=== PATIENT | female | born 1965 | race Two or more races ===

== ENCOUNTER → 2016-06-30 07:26 | Day surgery (SDC) | payer BC ==
[~2016-06-30 07:26] MED LIST: Acetaminophen TAB* 325 MG PO PRN; Buffered Lidocaine 1% SYRIN* 3 ML/SYR SYRINGE INTRADERM ONE; Bupivacaine 0.5% SDV PF* 30 ML VIAL ONE; Dexamethasone IV* 4 MG/ML 1 ML (4 MG) ONE; DiMENhydriNATE IV* 50 MG/ML VIAL IV PUSH PRN; Famotidine IV* 10 MG/ML 2 ML (20 mg) ONE; HYDROcodone/ACETAMIN 5-325 MG* 1 TAB PO PRN; KETAMINE HCL* 50 MG/ML 10 ML VIAL ONE; Ketorolac INJ* 30 MG/ML 1 ML VIAL ONE; Lidocaine 1% INJ* 10 MG/ML 30 ML SDV ONE; Lidocaine 2% PF* 5 ML VIAL ONE; Midazolam* 1 MG/ML 2 ML VIAL (2 MG) ONE; Ondansetron INJ* 2 MG/ML VIAL IV PRN; Propofol* 10 MG/ML 20 ML BTL IV PUSH ONE; ceFAZolin 2 GM PREMIX(*) 2 GM/50 ML BAG IVPB ONE; fentaNYL* 50 MCG/ML 2 ML VIAL (100 MCG VIAL) IV PRN; fentaNYL* 50 MCG/ML 2 ML VIAL (100 MCG VIAL) ONE
[2016-06-30 11:52] VITALS: BP 129/72
--- NOTE | 2016-07-01 04:00 | OP ---
DATE OF OPERATION: 06/30/16 - [facility] DATE OF : 65 SURGEON: Mason Rivera DPM ENVIRONMENTAL ASSISTANT: None. ANESTHESIOLOGIST: Dr. Hines ANESTHESIA: MAC with local. PRE-OP DIAGNOSIS: Painful bunion with hallux limitus, right foot. POST-OP DIAGNOSIS: Painful bunion with hallux limitus, right foot. OPERATIVE PROCEDURE: Bunionectomy with closing base wedge osteotomy and angular phalangeal osteotomy of the right foot. PATHOLOGY: Degenerative bone. HEMOSTASIS: Pneumatic ankle tourniquet. ESTIMATED BLOOD LOSS: Less than 10 cc. MATERIALS: Two of the 3.0 mm cannulated Gilberto screws. INDICATIONS: The patient has chronic right forefoot pain and significant bunion deformity with hypertrophic bone medially. Decreased range of motion and pain about the right great toe joint, causing pain while wearing shoes and walking. The patient opts for surgery at this time to attempt to decrease the deformity and to decrease the pain and improve her function. DESCRIPTION OF PROCEDURE: The patient was brought to the operating room, placed on the operating table in the supine position. The anesthesia department administered IV sedation and a peripheral nerve block was performed about the right forefoot with a 1:1 mixture of 1% lidocaine plain with 0.5% Marcaine plain. The right foot was prepped and draped in the usual fashion. The right foot was exsanguinated with an Esmarch bandage. The pneumatic ankle tourniquet was then inflated to 250 mmHg above the well-padded right ankle. Attention was directed to the dorsomedial aspect of the right great toe joint where a curvilinear incision was made. The incision was deepened through the subcutaneous tissue with care being taken to retract neurovascular structures and cauterize superficial bleeders as needed. Next, an inverted L-capsular incision was made to allow for exposure of the joint. The periosteum was reflected approximately to allow for exposure of the proximal aspect of the metatarsal. A McGlamry elevator was used to free the plantar lateral adhesions of the sesamoid apparatus. Next, a traditional lateral release was performed, transecting the conjoint tendon of the adductor hallucis. A portion of lateral fibular sesamoid ligament, portion of lateral capsule and extensor hallucis brevis tendon was also identified and transected. This allowed for relaxation of lateral contractures. Next, a closing base wedge osteotomy was performed with apex proximal medially and the base more distal medially to offer adequate correction of the intermetatarsal angle. Temporary fixation was achieved with a bone clamp. The position was assessed with a C-arm and optimal screw placement was found to be one screw across the osteotomy site. The position was assessed with the intraoperative C-arm. The temporary fixation was removed and found to be solid with no detectable motion or gapping. Based on the bone surface in the area, it was determined that another screw was not feasible to place across the osteotomy without compromising the adjacent cortex. The medial hinge was maintained with the osteotomy. The medial hypertrophic bone was resected out of the first metatarsal head in a manner as to preserve the sagittal groove. The power elsa was used to smooth the rough edges. I determined that a phalangeal osteotomy was needed to further correct for the hallux interphalangeals. Dissection was carried distal medially reflecting the periosteum with care being taken to retract the neurovascular structures and angular phalangeal osteotomy was performed from distal medial to more proximal lateral maintaining the hinge and allowed reduction of the osteotomy and temporary fixation achieved with the wire from screw set and using standard technique, a 3-0 mm cannulated [place] screw was placed across the osteotomy site. Prior to fixation, the correction was assessed with the C-arm as well as final placement of fixation and correction. Temporary fixation was removed. The osteotomy was found to be solid with no detectable motion or gapping. Both screws were checked and found to be two fingers tight. The surgical site was flushed with copious amounts of normal sterile saline. Medial capsulorrhaphy was performed, done in the capsule. Next, holding the hallux in the rectus position, the periosteum and capsular tissues were reapproximated and then secured with 2-0 Polysorb. The subcutaneous tissues were reapproximated with 4-0 Polysorb and the skin was reapproximated with 5-0 nylon. A 12 mg total of dexamethasone phosphate was infiltrated about the surgical site. The surgical site then dressed with Xeroform gauze, Yobani and a light Coban wrap. The pneumatic ankle tourniquet was deflated about the right ankle and a prompt hyperemic response was noted about all 5 digits of the patient's right foot. Having appeared to have tolerated the procedure and anesthesia well, the patient was transported via cart from the operating room to Recovery in satisfactory condition with capillary refill less than 3 seconds to all digits of the right foot. [id number]/[facility] #: [id number] MTDReuben
--- NOTE | 2016-07-01 14:44 | RAD ---
CPT II Codes: 6045F INDICATION: Right foot surgery TECHNIQUE: Intraoperative fluoroscopy was provided during right foot surgery. FINDINGS: 3 spot films depict placement of 2 intra-medullary screws spanning the proximal right first metatarsal and right great toe proximal phalanx. Remaining visualized bones are intact and properly aligned.. Fluoroscopy time: 32 seconds IMPRESSION: As above.
== END | disposition home or self-care (01) ==
LOC: OREAST 07:26
PROVIDERS: ATTEND Podiatrist Foot Surgery
DX: M21.611 Bunion of right foot (principal); M20.5X1 Other deformities of toe(s) (acquired), right foot; F17.210 Nicotine dependence, cigarettes, uncomplicated
CPT/HCPCS: 76000; 88304; 88311; C1713; C1776; J0690; J1100; J1885; J2001; J2250; J2704; J3010